=== PATIENT | female | born 1950 | race Caucasian/White ===

== ENCOUNTER → 2020-12-15 | Outpatient (CLI) | payer MEDICARE, OTHER ==
[2020-12-17 07:12] LABS: RHEUMATOID ARTHRITIS FACTOR 15.3 IU/mL (0.0-13.9); VITAMIN D, 25-HYDROXY 40.3 ng/mL (30.0-100.0)
== END ==
LOC: LAB 13:24
PROVIDERS: Nurse Practitioner Family
DX: M25.50 Pain in unspecified joint (principal); E55.9 Vitamin D deficiency, unspecified; D89.9 Disorder involving the immune mechanism, unspecified; R76.8 Other specified abnormal immunological findings in serum
CPT/HCPCS: 36415; 82550; 83520; 85652; 86140; 86200; 86431

== ENCOUNTER → 2021-08-17 | Outpatient (CLI) | payer MEDICARE, OTHER | LOC: MAMO 10:30 | DX: Z12.31 Encounter for screening mammogram for malignant neoplasm of breast (principal) | CPT/HCPCS: 77063; 77067 ==

== ENCOUNTER → 2021-10-24 | Outpatient (CLI) | payer MEDICARE, OTHER | LOC: EXRD 10-13 15:45 | DX: E04.9 Nontoxic goiter, unspecified (principal) | CPT/HCPCS: 76536 ==